=== PATIENT | female | born 2000 | race Caucasian/White ===

== ENCOUNTER 2024-10-19 19:35 | Observation (INO) | payer MEDICAID, SELFPAY ==
[2024-10-19 19:48] VITALS: BMI 31.4
[2024-10-19 19:49] VITALS: BP 123/75
[2024-10-19 20:59] LABS: Hemoglobin 11.3 g/dL (12.0-16.0); Mean Corp Hgb Conc. 33.2 g/dL (33.0-37.0); Mean Corpuscular Hgb 27.3 pg (27.0-31.0); Mean Corpuscular Volume 82.1 fL (81.0-99.0); Mean Platelet Volume 9.9 fL (7.4-10.4); Platelet Count 205 10^3/uL (130-400); Red Blood Cell Count 4.14 10^6/uL (4.20-5.40); Red Cell Dist. Width 13.5 % (11.5-14.5); White Blood Cell Count 10.8 10^3/uL (4.8-10.8)
[2024-10-19 22:09] LABS: HIV Combo Negative (Negative)
[2024-10-22 18:10] LABS: Hepatitis B Surface Antigen Negative (Negative)
[2024-10-22 18:29] LABS: Hepatitis B Core Ab, Total Negative (Negative); Hepatitis B Surface Antibody Negative; Hepatitis C Antibody Negative (Negative)
[2024-10-22 18:59] LABS: Rubella Positive
[2024-10-23 10:50] LABS: Syphilis/T. pallidum Ab Reflex Negative (Negative)
== END 2024-10-19 21:04 | disposition home or self-care (01) ==
LOC: LDRP 19:35
PROVIDERS: ADMITTING PHYSICIAN Obstetrics & Gynecology
DX: O26.892 Other specified pregnancy related conditions, second trimester (principal); R10.84 Generalized abdominal pain; Z3A.27 27 weeks gestation of pregnancy
CPT/HCPCS: 85027; 86704; 86706; 86762; 86780; 86803; 86850; 86900; 86901; 87340; 87389; G0378

== ENCOUNTER → 2024-10-30 10:01 | Outpatient (REF) | payer OTHER, SELFPAY | LOC: PNTC 10:01 | PROVIDERS: ATTENDING PHYSICIAN Obstetrics & Gynecology | DX: Z34.90 Encounter for supervision of normal pregnancy, unspecified, unspecified trimester (principal); O09.30 Supervision of pregnancy with insufficient antenatal care, unspecified trimester | CPT/HCPCS: 76805 ==

== ENCOUNTER 2024-11-08 17:01 | Observation (INO) | payer OTHER, SELFPAY ==
[2024-11-08 17:12] VITALS: BP 121/70; BMI 32.1
== END 2024-11-08 18:12 | disposition home or self-care (01) ==
LOC: LDRP 17:01
PROVIDERS: ADMITTING PHYSICIAN Student in an Organized Health Care Education/Training Program; FAMILY PHYSICIAN Obstetrics & Gynecology
DX: O99.213 Obesity complicating pregnancy, third trimester (principal); O99.343 Other mental disorders complicating pregnancy, third trimester; F32.A Depression, unspecified; Z3A.30 30 weeks gestation of pregnancy
CPT/HCPCS: G0378

== ENCOUNTER 2024-11-18 07:10 | Emergency (ER) | payer OTHER, SELFPAY ==
[2024-11-18 07:13] VITALS: BP 114/79
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
[2024-11-18 07:35] VITALS: BMI 33.5
--- NOTE | 2024-11-18 07:35 | EDRN ---
Mike Montana PA in to see ptShahbaz
[2024-11-18 07:40] VITALS: BP 105/62
--- NOTE | 2024-11-18 07:56 | EDRN ---
Mike MENEZES in room w/ pt at this time.
== END 2024-11-18 08:11 | disposition home or self-care (01) ==
LOC: EMR 07:10
PROVIDERS: EMERGENCY PHYSICIAN Emergency Medicine
DX: S49.81XA Other specified injuries of right shoulder and upper arm, initial encounter (principal); O26.893 Other specified pregnancy related conditions, third trimester; Z3A.32 32 weeks gestation of pregnancy; W50.3XXA Accidental bite by another person, initial encounter; Y93.89 Activity, other specified; Y92.89 Other specified places as the place of occurrence of the external cause; Y99.0 Civilian activity done for income or pay; Z20.6 Contact with and (suspected) exposure to human immunodeficiency virus [HIV]
CPT/HCPCS: 99282

== ENCOUNTER → 2025-01-08 12:11 | Outpatient (REF) | payer OTHER, SELFPAY | LOC: PNTC 12:11 | PROVIDERS: ATTENDING PHYSICIAN Obstetrics & Gynecology | DX: O36.8190 Decreased fetal movements, unspecified trimester, not applicable or unspecified (principal) | CPT/HCPCS: 59025; 76815 ==

== ENCOUNTER 2025-01-15 19:33 | Inpatient (IN) | payer OTHER, SELFPAY ==
[2025-01-15 19:55] VITALS: BP 124/85; BMI 33.9
[2025-01-15 20:22] LABS: % Basophils 0.2 % (0-2); % Eosinophils 0.4 % (0-6); % Immature Granulocytes 0.4 % (0-0.5); % Lymphocytes 12.1 % (20.5-51.1); % Monocytes 7.6 % (1.7-9.3); % Neutrophils 79.3 % (42.2-75.2); Absolute Monocytes 0.6 10^3/uL (0.1-0.6); Absolute Neutrophils 6.5 10^3/uL (1.4-6.5); Hematocrit 36.7 % (37.0-47.0); Hemoglobin 12.3 g/dL (12.0-16.0); Mean Corp Hgb Conc. 33.5 g/dL (33.0-37.0); Mean Corpuscular Hgb 25.4 pg (27.0-31.0); Mean Corpuscular Volume 75.7 fL (81.0-99.0); Mean Platelet Volume 10.7 fL (7.4-10.4); Nucleated Red Blood Cells % 0 %; Platelet Count 252 10^3/uL (130-400); Red Blood Cell Count 4.85 10^6/uL (4.20-5.40); Red Cell Dist. Width 14.4 % (11.5-14.5); White Blood Cell Count 8.2 10^3/uL (4.8-10.8)
[2025-01-15] MEDS: CYTOTEC 50 MICROGRAM VAG (20:22)
[2025-01-15] MEDS: CYTOTEC 25 MICROGRAM PO (23:58)
[2025-01-16] MEDS: CYTOTEC PO (05:35)
[2025-01-16] MEDS: LEXAPRO 10 MG PO (08:15)
[2025-01-16] MEDS: PITOCIN 30 UNITS/NSS 500 ML IV (08:28)
[2025-01-16] MEDS: PENICILLIN 110 UNITS IV (08:58)
[2025-01-16] MEDS: PENICILLIN 55 UNITS IV ×3 (13:07→21:34)
[2025-01-16] MEDS: STADOL 1 MG IV (18:15)
[2025-01-17] MEDS: LR 1000 IV ×2 (00:15→05:21)
[2025-01-17] MEDS: PENICILLIN 55 UNITS IV ×4 (01:59→14:45)
[2025-01-17] MEDS: FENTANYL/BUPIVACAINE 100 EPIDURAL ×2 (04:28→13:32)
[2025-01-17] MEDS: SUBLIMAZE 100 MCG EPIDURAL (04:28)
[2025-01-17] MEDS: CYTOTEC PO ×2 (11:21→12:27)
[2025-01-17] MEDS: LEXAPRO PO (12:28)
[2025-01-17] MEDS: LEXAPRO 10 MG PO (17:30)
[2025-01-18 04:57] LABS: Hematocrit 36.5 % (37.0-47.0); Hemoglobin 12.1 g/dL (12.0-16.0)
[2025-01-18] MEDS: LEXAPRO 10 MG PO (08:29)
[2025-01-18] MEDS: PRENATAL PLUS 1 TABLET PO (08:30)
[2025-01-18 17:50] LABS: Syphilis/T. pallidum Ab Reflex Negative (Negative)
[2025-01-19] MEDS: LEXAPRO 10 MG PO (07:35)
[2025-01-19] MEDS: PRENATAL PLUS 1 TABLET PO (07:35)
== END 2025-01-19 13:24 | disposition home or self-care (01) | DRG 807 ==
LOC: LDRP 19:33
PROVIDERS: Obstetrics & Gynecology; ADMITTING PHYSICIAN Obstetrics & Gynecology; FAMILY PHYSICIAN Student in an Organized Health Care Education/Training Program
PROC: 3E0P7VZ Introduction of Hormone into Female Reproductive, Via Natural or Artificial Opening (ICD-10-PCS; 2025-01-16)
PROC: 3E033VJ Introduction of Other Hormone into Peripheral Vein, Percutaneous Approach (ICD-10-PCS; 2025-01-16)
PROC: 10907ZC Drainage of Amniotic Fluid, Therapeutic from Products of Conception, Via Natural or Artificial Opening (ICD-10-PCS; 2025-01-17)
PROC: 10E0XZZ Delivery of Products of Conception, External Approach (ICD-10-PCS; 2025-01-17)
DX: O99.824 Streptococcus B carrier state complicating childbirth (principal); Z37.0 Single live birth; Z3A.40 40 weeks gestation of pregnancy; O76 Abnormality in fetal heart rate and rhythm complicating labor and delivery
CPT/HCPCS: 88307; 85014; 85018; 85025; 86780; 86850; 86900; 86901

== ENCOUNTER 2025-02-27 23:18 | Emergency (ER) | payer OTHER, SELFPAY ==
[2025-02-27 23:33] VITALS: BP 116/74
[2025-02-28 00:04] LABS: COVID-19 Antigen Negative (Negative)
[2025-02-28] MEDS: TYLENOL 650 MG PO (03:41)
[2025-02-28] MEDS: MOTRIN 600 MG PO (03:41)
--- NOTE | 2025-02-28 03:53 | ED.GENMED ---
History of Present Illness
General
Chief Complaint: Cold/Flu/URI Symptoms
Source: patient
Exam Limitations: none
Time Seen by Provider: 02/28/25 02:59
Nursing documentation reviewed up to this point in time: agreed with
History of Present Illness
History of Present Illness:
24-year-old female presenting to the emergency department today with concerns of cough congestion sore throat starting today. Denies any chest pain shortness of breath does feel some bodyaches. Had subjective fevers at home.
Review of Systems
Review of Systems
Allergies reviewed?: Yes
All Other Systems: ROS reviewed and negative except as documented in HPI and ROS
Phy Exam
Physical Exam
Physical Exam:
GENERAL: Alert , in no apparent distress
EYE: pupils equal and reactive
NECK: Supple, no significant adenopathy.
ENT: Swollen boggy nasal turbinates, redness and irritation to the posterior pharynx without significant tonsillar swelling uvula midline grossly patent airway o/p clr, mmm.
CARDIAC: Regular rate and rhythm .
LUNGS: Clear breath sounds bilaterally, no acute respiratory distress, no wheezes/rales/rhonchi
ABDOMEN: Soft, without focal tenderness, no r/g, no cvat
NEUROLOGICAL: Alert and oriented, no focal neuro deficits
SKIN: Warm and dry, skin intact.
MUSCULOSKELETAL: No edema, well perfused.
PSYCH: Normal and appropriate interaction.
Course
Orders/Labs/Results
Orders:
Orders
02/27/25 23:38
COVID-19 Antigen Urgent
Source: Nasal Swab
Influenza A+B Rapid Molecular Urgent
ASHWIN Source: Nasal Swab
Specimen Description:
02/28/25 03:32
Acetaminophen [Tylenol] 650 mg PO NOW STA
Ibuprofen [Motrin] 600 mg PO NOW STA
Vital Signs
Initial and Last Documented VS:
Initial Vital Signs
Temp Pulse Resp BP Pulse Ox
99.3 F 106 18 116/74 99
02/27/25 23:33 02/27/25 23:33 02/27/25 23:33 02/27/25 23:33 02/27/25 23:33
Last Documented Vital Signs
Temp Pulse Resp BP Pulse Ox
99.3 F 106 18 116/74 99
02/27/25 23:33 02/27/25 23:33 02/27/25 23:33 02/27/25 23:33 02/27/25 23:33
MDM/Problems Addressed
MDM/Problems Addressed:
24-year-old female presenting to the emergency department today with concerns of upper respiratory symptoms today. On arrival mildly tachycardic but normal heart rate when assessed by me. Symptoms seem to be consistent with upper respiratory
infection no signs of complications. Patient stable for outpatient management. Return precautions given.
*Pulse Oximetry
SaO2: 99
Oxygen Mode of Delivery: Room air
Patient hypoxic: no (99)
*Critical Care Note
Total Time (30-74mins, 75-104mins- exclusive of procedures): Not Applicable
ED Attending Note
-
Portions of this chart may have been created with voice recognition software.� Occasional wrong word or��sound alike� substitutions may have occurred due to the inherent limitations of voice recognition software.
Discharge Plan
Departure
Patient Disposition: Home (Routine Discharge)
Date of Disposition: 02/28/25
Time of Disposition: 03:55
Patient with high blood pressure during this ER visit?: No
Condition: Good
Covid-19: Not Applicable
Discharge Problem:
URI (upper respiratory infection)
Instructions: Viral Upper Respiratory Infection, Adult (DC)
Prescriptions:
No Action
escitalopram oxalate [Lexapro] 10 mg Tablet
10 mg PO DAILY
gqtwwkhi-vco-Ru-FA 1 mg Tablet
1 tab PO DAILY
acetaminophen 325 mg Tablet
650 mg PO Q4HPRN PRN (Reason: mild pain) Qty: 0 0RF
ibuprofen 600 mg Tablet
600 mg PO Q6HPRN PRN (Reason: moderate pain/cramps) Qty: 0 0RF
Referrals:
UNKNOWN - PT DOES,NOT KNOW [Family Provider]
Activity Restrictions/Additional Instructions:
You came to the emergency department with concerns of upper respiratory symptoms. Please take Motrin Tylenol to help with symptoms and fever. Return for any worsening, new or concerning symptoms.
Interventions
Interventions:
*Risk Screen - Suicide Last Done: 02/27/25 23:33
*General Assessment Last Done: 02/27/25 23:33
*Neglect/Abuse Screening Last Done: 02/27/25 23:33
ED- Pulmonary Assessment Last Done: 02/28/25 02:39
Discharge Date and Time
Print Language: PORTUGUESE
[2025-02-28 04:04] VITALS: BP 102/67
== END 2025-02-28 04:06 | disposition home or self-care (01) ==
LOC: EMR 23:18
PROVIDERS: Emergency Medicine; EMERGENCY PHYSICIAN Emergency Medicine
DX: J06.9 Acute upper respiratory infection, unspecified (principal); R00.0 Tachycardia, unspecified; Z11.52 Encounter for screening for COVID-19
CPT/HCPCS: 99283; 87502; 87811